=== PATIENT | male | born 1965 | race Caucasian/White ===

== ENCOUNTER 2025-06-29 09:12 | Outpatient (OUT) | payer OTHER, SELFPAY ==
--- OUTSIDE RECORDS SUMMARY | 2025-06-29 09:20 | XMS_ITS | Clinical Summary ---
Author Organization [employer] [facility] tem Address [facility] [place] [id number] [address] [place] [address] Care Team Providers Care Personal Lines Account Executive Name Role Phone Harmeet Salcido Michel HANKINS-KATY Primary Care Provider + Allergies No known active allergies Medications MedicationSigDispense QuantityRefillsLast FilledStart DateEnd DateStatus lisinopriL (PRINIVIL,ZESTRIL) 10 mg tablet Indications:Benign essential HTNTake 1 tablet (10 mg total) by mouth in the morning. 90 tablet ctive rosuvastatin (CRESTOR) 5 mg tablet Indications:Mixed hyperlipidemiaTake 1 tablet (5 mg total) by mouth in the morning. 90 tablet ctive Active Problems No known active problems Immunizations ImmunizationAdministration DatesNext DueInfluenza, Injectable, Mdck, Preservative Free, Quad04/09/2021Influenza, Tiomnaanyuv05/09/2018,06/16/2016, 05/20/2015Pneumococcal Sfddqscjr82/19/2014Pneumococcal Conjugate 20-valent 12/15/2023Tdap09/28/2018Zoster Live05/18/2018Zoster, unspecified formulation 11/15/2017 Family History Medical HistoryRelationNameCommentsDiabetesBrother 2DiabetesFatherAsthmaSister RelationNameStatusCommentsBrother 1AliveBrother 2AliveFatherAliveMotherAlive SisterAlive Social History Tobacco UseTypesPacks/DayYears UsedDateSmoking Tobacco: Some DaysCigarettes0.330 Smokeless Tobacco: Former Tobacco Cessation:Ready to Q uit: Not Asked; Counseling Given: Not Answered Alcohol UseStandard Drinks/WeekCommentsYes2 (1 standard drink = 0.6 oz pure alcohol)dailyPHQ-2AnswerDate RecordedTotal Lpeyh268hildcareAnswerDate QlkpulsbDltlmylhcVpiwvbl48/12/2019EmploymentAnswerDate RecordedEmploymentUnknown 12/14/2018Hunger ScreeningAnswerDate RecordedWithin the past 12 months we worried whether our food would run out before we got money to buy more.Never True02/08/2024Within the past 12 months the food we bought just didn't last and we didn't have money to get more.Never True02/08/2024Sex and Gender Information ValueDate RecordedSex Assigned at BirthNot on fileLegal OujVlob1702/07/2015 12:02 PM EDTGender IdentityNot on fileSexual OrientationNot on file Last Filed Vital Signs Vital SignReadingTime TakenCommentsBlood Navpxalp366/8008 7:26 AM EDT Tarkn803702/08/2024 7:26 AM YYREyryfjplmgr18.7 ??C (98 ??F)02/08/2024 7:26 AM EDT Respiratory Bmpo680607/23/2022 4:51 PM ESTOxygen Ukfxxtestw83%02/08/2024 7:26 AM EDTInhaled Oxygen Concentration--Atyyfz23.6 kg (151 lb 3.2 oz)02/08/2024 7:26 AM AXKVxmizv615.3 cm (5' 9 )02/08/2024 7:26 AM EDTBody Mass Index22.3308 7:26 AM EDT Plan of Treatment Health MaintenanceDue DateLast QhszIskzaiwcPjgijoctpgf10/30/2011Zoster (Shingles) Vaccine (2 of 3), 11/15/2017Adult BMI Screening epression Swmlylevr49Tobacco Screening OVID-19 Vaccine ( season)/2021, 10/15/2020, 09/23/2020Influenza Taoblor86/12/2020, 07/13/2017, 06/16/2016, Additional history existsDTaP,Tdap and Td Vaccines (2 - Td or Tdap) Medical Devices Not on file Insurance Care Teams Team MemberRelationshipSpecialtyStart DateEnd Date Harmeet Salcido, TELECOMMUNICATIONS PROFESSIONAL-FLUID JET CUTTER OPERATOR [address] [facility] [place], [place] [id number] PCP - GeneralInternal Medicine02/05/25
--- NOTE | 2025-06-29 09:25 | US_ITS ---
The [address] [address] Patient Name: NATALY MA MRN: [id number] date: 1965 Sex: M Assigned Patient Location: [place] Current Patient Location: [place] Accession/Order Number: [id number] Exam Date: 06/29/2025 09:30 Report Date: 06/29/2025 10:01 At the request of: NON-STAFF PHYSICIAN MD Procedure: US soft tissue head and neck LIMITED ULTRASOUND - posterior neck CLINICAL DATA: Chronic lump for several years at the central aspect of the posterior neck. COMPARISON: None Real-time ultrasound evaluation of the site of palpable concern was performed. Within the subcutaneous fat, there is an oval hyperechoic nodular area with hypoechoic margin measuring 3.2 x 1.3 x 3.2 cm in size. No associated blood flow is shown. This might be a lipoma. US/US soft tissue head and neck IMPRESSION: SUSPECTED LIPOMA AT THE SITE OF PALPABLE CONCERN. CLINICAL CORRELATION IS SUGGESTED. Impression dictated by: Mirna Salgado M.D. 06/29/2025 10:01 AM Dictation Location: [place] [address] Electronically authenticated by: [id number] Y Date: 06/29/2025 10:01
== END 2025-06-29 09:13 | disposition home or self-care (01) ==
DX: E88.2 Lipomatosis, not elsewhere classified (principal)
CPT/HCPCS: 76536